=== PATIENT | female | born 1990 | race Caucasian/White ===

== ENCOUNTER 2023-10-31 22:00 | Emergency (ER) | payer OTHER ==
[~2023-10-31] VITALS: Ht 167.6 cm; Wt 136.1 kg
[2023-10-31 22:54] VITALS: TEMP 99.2
[2023-10-31 23:54] VITALS: BP 120/73; O2SAT 93
== END 2023-10-31 23:54 | disposition home or self-care (01) ==
LOC: ER 22:13
DX: J06.9 Acute upper respiratory infection, unspecified (principal); R09.82 Postnasal drip
CPT/HCPCS: 71045-TC